=== PATIENT | male | born 1955 | race Caucasian/White ===

== ENCOUNTER 2016-06-01 03:35 | Emergency (ER) | payer OTHER ==
--- NOTE | 2016-06-01 03:58 | ERPHSYRPT ---
- History of Present Illness Time Seen by Provider: 06/01/16 03:48 Source: patient Exam Limitations: no limitations Physician History: The patient is a 60-year-old male who comes in from work at the [employer] complaining of shortness of breath. He states he was sweaty and having a hard time breathing. He was scheduled to see a transit mix operator on Sunday but the company sent him to the ER to be checked out. About 4 weeks ago he had influenza and was hospitalized for shortness of breath at which time he was given albuterol and steroids. He's had increasing shortness of breath of a gradual nature for the past 6 months. Tonight he denies any cough. He said it feels like there is a sack over his head making it hard for him to breathe. His past medical history is significant for hypertension, [place] 6 years ago, high cholesterol, hernia repair surgery, and gallbladder removal. 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 He states that frequently he gets short of breath when he breathes in the coal dust. Timing/Duration: other (6 months) Activities at Onset: activity Severity of Dyspnea-Max: moderate Severity of Dyspnea-Current: moderate Possible Cause: chronic episodes, smoke exposure Modifying Factors: Improves With: nothing Associated Symptoms: denies symptoms Allergies/Adverse Reactions: meperidine [From Demerol] Allergy (Verified 06/01/16 03:43) - Review of Systems Constitutional: No Fever, No Chills Eyes: No Symptoms Ears, Nose, & Throat: No Symptoms Respiratory: Dyspnea, Dyspnea on Exertion (DOLAN) Cardiac: No Chest Pain, No Edema, No Syncope Abdominal/Gastrointestinal: No Abdominal Pain, No Nausea, No Vomiting, No Diarrhea Genitourinary Symptoms: No Dysuria Musculoskeletal: No Back Pain, No Neck Pain Skin: No Rash Neurological: No Dizziness, No Focal Weakness, No Sensory Changes Psychological: No Symptoms Endocrine: No Symptoms Hematologic/Lymphatic: No Symptoms Immunological/Allergic: No Symptoms All Other Systems: Reviewed and Negative - Nursing Vital Signs Nursing Vital Signs: Initial Vital Signs Temperature 98.8 F Temperature Source Oral Pulse Rate 84 Respiratory Rate 22 Blood Pressure [Right Arm] 144/86 Pain Intensity 0 - Physical Exam General Appearance: moderate distress Eye Exam: PERRL/EOMI Ears, Nose, Throat Exam: hearing grossly normal Neck Exam: normal inspection, supple Respiratory Exam: wheezing (in right lung) Cardiovascular/Chest Exam: normal heart sounds, regular rate/rhythm Abdominal/Gastrointestinal Exam: soft, No tenderness, No distention, No mass Rectal Exam: not done Extremity Exam: non-tender, normal range of motion, normal inspection, no calf tenderness, no pedal edema Neurologic Exam: alert, oriented x 3, cooperative, 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 Also diffuse infiltrates in RLL.) Ordered Tests: Active Orders 24 hr Category Date Time Status Beef Boner STAT Care 06/01/16 04:04 Active EKG-ER Only STAT Care 06/01/16 04:04 Active IV Insertion STAT Care 06/01/16 04:04 Active Oxygen-ED Only NASAL CANNULA 1 lpm Care 06/01/16 04:44 Active Oxygen-ED Only NASAL CANNULA 2 lpm Care 06/01/16 04:44 Active Oxygen-ED Only NASAL CANNULA 3 lpm Care 06/01/16 04:43 Active Oxygen-ED Only NASAL CANNULA 4 lpm Care 06/01/16 04:04 Active Pulse Oximetry (ED) STAT Care 06/01/16 04:04 Active CHEST 2 VIEWS (PA AND LAT) Stat Exams 06/01/16 04:04 Taken CBC W DIFF Stat Lab 06/01/16 03:50 Completed CMP Stat Lab 06/01/16 03:50 Completed TROPONIN Stat Lab 06/01/16 03:50 Completed Respiratory Nebulizer STAT RT 06/01/16 04:05 Completed Medication Summary Discontinued Medications Generic Name Dose Route Start Last Admin Trade Name Freq PRN Reason Stop Dose Admin Albuterol/Ipratropium 3 ml 06/01/16 04:04 06/01/16 04:13 Duoneb 0.5-3 Mg/3 Ml Neb IH 06/01/16 04:05 3 ml STAT ONE Administration Methylprednisolone Sodium Succinate 125 mg 06/01/16 04:04 06/01/16 04:14 Solu-Medrol 125 Mg IV 06/01/16 04:05 125 mg STAT ONE Administration Lab/Rad Data: Laboratory Result Diagrams 06/01/16 03:50 06/01/16 03:50 Laboratory Results 06/01/16 06/01/16 Range/Units 03:50 03:50 WBC 9.7 (4.0-10.5) K/mm3 RBC 4.39 (4.1-5.6) M/mm3 Hgb 13.5 (12.5-18.0) gm/dl Hct 40.2 L (42-50) % MCV 91.6 (78-100) fl MCH 30.8 (26-32) pg MCHC 33.6 (32-36) g/dl RDW 14.2 H (11.5-14.0) % Plt Count 306 (150-450) K/mm3 MPV 9.8 H (6-9.5) fl Gran % 45.8 (36.0-66.0) % Lymphocytes % 39.2 (24.0-44.0) % Monocytes % 13.2 H (0.0-12.0) % Eosinophils % 1.5 (0.00-5.0) % Basophils % 0.3 (0.0-0.4) % Basophils # 0.03 (0-0.4) Sodium 143 (136-145) mEq/L Potassium 4.0 (3.5-5.1) mEq/L Chloride 108 H (98-107) mEq/L Carbon Dioxide 24.1 (21-32) mEq/L Anion Gap 14.9 (5-15) MEQ/L BUN 19 (9-20) mg/dL Creatinine 1.08 (0.55-1.30) mg/dl Estimated GFR > 60 ML/MIN Glucose 143 H (70-110) MG/DL Calcium 8.8 (8.5-10.1) mg/dL Total Bilirubin 0.2 (0.2-1.0) mg/dL AST 42 H (15-37) U/L ALT 111 H (12-78) U/L Alkaline Phosphatase 34 L (46-116) U/L Troponin I < 0.017 (0.000-0.056) ng/ml Serum Total Protein 7.0 (6.4-8.2) gm/dL Albumin 3.9 (3.4-5.0) g/dL - Progress Progress: improved Air Movement: good Progress Note: 06/01/16 05:06 After Duo neb and solumedrol 125 mg IV, pt is feeling much better. Blood Culture(s) Obtained: No Antibiotics given: Yes Counseled pt/family regarding: lab results, diagnosis, need for follow-up, rad results - Departure Time of Disposition: 05:10 Departure Disposition: Home Clinical Impression: Dyspnea and respiratory abnormalities, Infiltrate noted on imaging study Condition: Stable Critical Care Time: No Additional Instructions: You have acute shortness of breath with wheezing. The chest x-ray shows areas of scarring and infiltrates. You were given a DuoNeb treatment and Solu-Medrol 125 mg IV in the ER. You were also given the antibiotic Rocephin 1 g IV. Take prednisone 60 mg daily for 5 days. Take azithromycin for 5 days as directed. Use albuterol nebulizer treatments every 2-4 hours as needed for shortness of breath. Follow-up with the transit mix operator as scheduled on Sunday. Prescriptions: Azithromycin [Azithromycin 250 mg Pack] 250 mg PO UD #6 tablet Prednisone 10 mg [Deltasone 10 mg] 60 mg PO DAILY #30 tablet
[2016-06-01] MEDS ORDERED: DUONEB 0.5-3 MG/3 ml Neb IH ONE ×2 (04:04→04:09)
[2016-06-01] MEDS ORDERED: solu-MEDROL 125 MG IV ONE (04:04)
[2016-06-01] MEDS ORDERED: solu-MEDROL 125 MG ONE (04:10)
[2016-06-01 04:12] LABS: BASOPHIL % 0.3 % (0.0-0.4); Eosinophil % 1.5 % (0.00-5.0); Granulocytes % 45.8 % (36.0-66.0); Lymphocytes % 39.2 % (24.0-44.0); Mean Cell Volume 91.6 fl (78-100); Mean Corpuscular Hemoglobin 30.8 pg (26-32); Mean Platelet Volume 9.8 fl (6-9.5); Monocytes % 13.2 % (0.0-12.0); Platelet Count 306 K/mm3 (150-450); Red Blood Count 4.39 M/mm3 (4.1-5.6); Red Cell Distribution Width 14.2 % (11.5-14.0); White Blood Count 9.7 K/mm3 (4.0-10.5)
[2016-06-01 04:19] VITALS: PULSE 84
[2016-06-01 04:29] LABS: ALBUMIN 3.9 g/dL (3.4-5.0); ALKALINE PHOSPHATASE 34 U/L (46-116); ANION GAP 14.9 MEQ/L (5-15); BILIRUBIN,TOTAL 0.2 mg/dL (0.2-1.0); BLOOD UREA NITROGEN 19 mg/dL (9-20); CHLORIDE 108 mEq/L (98-107); Carbon Dioxide 24.1 mEq/L (21-32); Glucose 143 MG/DL (70-110); SGOT/AST 42 U/L (15-37); SGPT/ALT 111 U/L (12-78); SODIUM 143 mEq/L (136-145)
[2016-06-01 04:34] LABS: TROPONIN < 0.017 ng/ml (0.000-0.056)
[2016-06-01] MEDS ORDERED: ROCEPHIN 1 Gm-D5w 50 ml Bag** 50 ML IV ONE ×2 (05:15→05:20)
[2016-06-01 06:07] VITALS: BP 142/77; O2SAT 95
--- NOTE | 2016-06-01 08:37 | XRAY ---
Indication: Short of breath. Comparison: October 03, 2013. PA/lateral chest hyperinflated with again right mid/left base subsegmental atelectasis/scarring and left apical calcified granuloma. Remaining lungs clear. Heart is not enlarged. Vascularity normal. Bony thorax intact. Impression: Nonacute hyperinflated chest with chronic features.
== END 2016-06-01 06:07 | disposition home or self-care (01) ==
LOC: ED 03:35
DX: R06.00 Dyspnea, unspecified (principal); R94.2 Abnormal results of pulmonary function studies; R91.8 Other nonspecific abnormal finding of lung field; R06.02 Shortness of breath; I10 Essential (primary) hypertension; I25.2 Old myocardial infarction
CPT/HCPCS: 36000; 36415; 71020; 80053; 84484; 85025; 93005; 93041; 94640; 96365; 96374; 99284; J0696; J2930; A9270-GY

== ENCOUNTER 2016-06-09 17:55 | Emergency (ER) | payer OTHER ==
--- NOTE | 2016-06-09 18:09 | ERPHSYRPT ---
- History of Present Illness Time Seen by Provider: 06/09/16 18:05 Source: patient, family Exam Limitations: clinical condition Patient Subjective Stated Complaint: PT REPORTS HE WAS DC FROM HOSP YESTERDAY- STATES THAT HE WAS SUPPOSED TO HAVE HOME OXYGEN BUT COULD NOT GET IT FOR INSURANCE REASONS-STATED THAT HIS BREATHING HAS NOT CHANGED SINCE DC FROM HOSPITAL-STATES HE WAS WORRIED THAT HE WOULD "GET INTO TROUBLE TONIGHT"-STATES THAT IF HE WAS ADMITTED TO HOSP AT LEAST HE WOULD HAVE OXYGEN Triage Nursing Assessment: PT PINK WARM ET DRY-A & o x 3-DENIES PAIN-LABORED BREATHING WTIH WHEEZES NOTED-PT IS CURRENTLY DUE FOR A BREATHING TREATMENT Physician History: Pt. with Dx of sleep apnea and recent pneumonia [facility].He did not get the Home O2 needed to prevent his desaturation with his EDUAR. He is being evaluated for black lung after working for 40 years in the [employer]. Timing/Duration: yesterday Activities at Onset: rest Severity of Dyspnea-Max: none Severity of Dyspnea-Current: none Possible Cause: chronic episodes Modifying Factors: Improves With: activity, other (sleep) Associated Symptoms: denies symptoms Allergies/Adverse Reactions: meperidine [From Demerol] Allergy (Verified 06/09/16 18:02) Home Medications: Albuterol 17 gm IH UD 06/09/16 [History] Albuterol 2.5 mg/3 ml Neb [Proventil 2.5 mg/3 ml Neb] 2.5 mg IH UD [History] Allopurinol 100 mg [Zyloprim 100 mg] 100 mg PO DAILY 06/09/16 [History] Alprazolam [Xanax] 0.5 mg PO UD 06/09/16 [History] Amlodipine Besylate 5 mg [Norvasc 5 mg] 5 mg PO BID 06/09/16 [History] Aspirin 81 gm Chew [Baby Aspirin 81 mg Chew] 81 mg PO DAILY 06/09/16 [ History] Fenofibric Acid (Choline) [Fenofibric Acid] 135 mg PO DAILY 06/09/16 [History] Nitroglycerin 0.4 mg (Ed) [Nitrostat 0.4 MG (ED)] 0.4 mg UD PRN [History] Omeprazole 20 MG [Prilosec 20 mg] 20 mg PO DAILY 06/09/16 [History] Paroxetine HCl [Paxil] 30 mg PO DAILY 06/09/16 [History] Pregabalin [Lyrica 150Mg] 150 mg PO HS 06/09/16 [History] Promethazine HCl [Phenergan] 25 mg PO UD PRN 06/09/16 [History] Hx Tetanus, Diphtheria Vaccination/Date Given: Yes Hx Influenza Vaccination/Date Given: Yes (2015) Hx Pneumococcal Vaccination/Date Given: No Immunizations Up to Date: Yes - Review of Systems Constitutional: No Symptoms Eyes: No Symptoms Ears, Nose, & Throat: No Symptoms Respiratory: Dyspnea Cardiac: No Symptoms Abdominal/Gastrointestinal: No Symptoms Musculoskeletal: No Symptoms Skin: No Symptoms Neurological: No Symptoms Psychological: No Symptoms Endocrine: No Symptoms Hematologic/Lymphatic: No Symptoms - Past Medical History Pertinent Past Medical History: Yes Cardiac History: High Cholesterol, Hypertension, Myocardial Infarction (ND) Other Medical History: LOWER BACK PAIN - Past Surgical History Past Surgical History: Yes Gastrointestinal: Cholecystectomy, Hernia Repair Musculoskeletal: Orthopedic Surgery Other Surgical History: CARPEL TUNNEL - Social History Smoking Status: Never smoker Exposure to second hand smoke: No Drug Use: none Patient Lives Alone: No - Nursing Vital Signs Nursing Vital Signs: Initial Vital Signs Temperature 98.5 F Temperature Source Oral Pulse Rate 90 Respiratory Rate 28 Blood Pressure [Right Arm] 152/93 Pain Intensity 0 - Physical Exam General Appearance: mild distress Eye Exam: eyes nml inspection Ears, Nose, Throat Exam: normal pharynx Neck Exam: normal inspection, non-tender, supple, full range of motion Respiratory Exam: normal breath sounds, lungs clear Cardiovascular/Chest Exam: normal heart sounds, regular rate/rhythm, normal peripheral pulses Abdominal/Gastrointestinal Exam: soft, normal bowel sounds Extremity Exam: non-tender, normal capillary refill Peripheral Pulses Exam: dorsalis-pedis (R): 3+, dorsalis-pedis (L): 3+ Neurologic Exam: alert, oriented x 3, cooperative Skin Exam: normal color, warm, dry SpO2 Interpretation: normal SpO2: 96 Oxygen Delivery: Room Air - Course Nursing assessment & vital signs reviewed: Yes Ordered Tests: Active Orders 24 hr Category Date Time Status ARTERIAL BLOOD GASES Stat Lab 06/09/16 18:26 Ordered - Progress Progress: improved Air Movement: good Progress Note: 06/09/16 18:45 We have tried to contact the O2 company to which he was referred. They need to arrange Home O2 for the weekend until his PCP can make further arrangements for him. Discussed with : Other (PCP 1 week) Counseled pt/family regarding: lab results, diagnosis, need for follow-up - Departure Time of Disposition: 18:45 Departure Disposition: Home Clinical Impression: Obstructive sleep apnea, Nocturnal oxygen desaturation Condition: Stable Critical Care Time: No
[2016-06-09 18:49] LABS: A-aADO2 31; ALLEN TEST OK? YES; ARTERIAL BLD GAS O2 SATURATION 96.4 % (95-100); ARTERIAL BLOOD GAS BASE EXCESS 1.6 (-2.0-2.0); ARTERIAL BLOOD GAS FIO2 21 %; ARTERIAL BLOOD GAS PO2 70 mmHg (75-100); ARTERIAL BLOOD GAS pH 7.43 (7.35-7.45)
[2016-06-09 19:52] VITALS: BP 140/85; PULSE 80; O2SAT 95
== END 2016-06-09 19:45 | disposition home or self-care (01) ==
LOC: ED 17:55
DX: G47.33 Obstructive sleep apnea (adult) (pediatric) (principal); Z99.81 Dependence on supplemental oxygen; F51.8 Other sleep disorders not due to a substance or known physiological condition
CPT/HCPCS: 36600; 82375; 82803; 99283